=== PATIENT | male | born 1970 | race American Indian/Alaskan Native ===

== ENCOUNTER 2021-04-23 13:45 | Emergency (ER) | payer SELFPAY ==
[2021-04-23] MEDS ORDERED: MORPHINE 4 MG/1 ML INJ IV ONE (14:32)
[2021-04-23] MEDS ORDERED: ONDANSETRON 4 MG/2 ML INJ IV ONE (14:32)
--- NOTE | 2021-04-23 14:35 | Emergency Department Report ---
ED Abdominal Pain HPI - General Chief Complaint: Abdominal Pain Stated Complaint: STOMACH PAIN Time Seen by Provider: 04/23/21 14:25 Source: patient Mode of arrival: Ambulatory Limitations: No Limitations - History of Present Illness Initial Comments: Patient is 50 years old male with no significant past medical history. Patient presented to the ER complaining of epigastric pain for the last 2 to 3 days. Patient describes his pain as sharp with radiation to the back. Patient stated that pain associated with nausea but no vomiting. Patient denied any fever or chills. No chest pain or shortness of breath. Patient admitted that he has been drinking alcohol for the last few days. MD Complaint: abdominal pain -: days(s) (2) Location: epigastric Radiation: back Severity scale (0 -10): 0 - Related Data Home Medications Medication Instructions Recorded Confirmed Last Taken Gabapentin 400 mg PO TID 12/23/19 12/23/19 3 Days Ago ~12/20/19 risperiDONE [RisperDAL] 2 mg PO DAILY 12/23/19 12/23/19 3 Days Ago ~12/20/19 Previous Rx's Medication Instructions Recorded Last Taken Type Gabapentin 400 mg PO TID #60 capsule 12/25/19 Unknown Rx Dicyclomine [Bentyl] 20 mg PO TID PRN #30 tablet 04/23/21 Unknown Rx Ondansetron [Zofran Odt] 4 mg PO Q8HR PRN #20 tab.rapdis 04/23/21 Unknown Rx Allergies Allergy/AdvReac Type Severity Reaction Status Date / Time No Known Allergies Allergy Verified 04/23/21 13:57 ED Review of Systems ROS: Stated complaint: STOMACH PAIN Other details as noted in HPI Comment: All other systems reviewed and negative Constitutional: denies: chills, fever Respiratory: denies: cough, shortness of breath, SOB with exertion Cardiovascular: denies: chest pain, palpitations Gastrointestinal: abdominal pain, nausea. denies: vomiting, diarrhea, constipation, hematemesis, melena, hematochezia Musculoskeletal: denies: back pain Neurological: denies: headache, weakness, numbness, paresthesias, confusion ED Past Medical Hx - Past Medical History Previous Medical History?: Yes Hx Psychiatric Treatment: Yes (bipolar and alcohol abuse.) Additional medical history: etoh abuse - Surgical History Past Surgical History?: Yes Additional Surgical History: skin graft - Social History Smoking Status: Current Every Day Smoker Substance Use Type: Alcohol - Medications Home Medications: Home Medications Medication Instructions Recorded Confirmed Last Taken Type Gabapentin 400 mg PO TID 12/23/19 12/23/19 3 Days Ago History ~12/20/19 risperiDONE [RisperDAL] 2 mg PO DAILY 12/23/19 12/23/19 3 Days Ago History ~12/20/19 Gabapentin 400 mg PO TID #60 capsule 12/25/19 Unknown Rx Dicyclomine [Bentyl] 20 mg PO TID PRN #30 tablet 04/23/21 Unknown Rx Ondansetron [Zofran Odt] 4 mg PO Q8HR PRN #20 tab.rapdis 04/23/21 Unknown Rx ED Physical Exam - General Limitations: No Limitations General appearance: alert, in no apparent distress - Head Head exam: Present: atraumatic, normocephalic, normal inspection - Eye Eye exam: Present: normal appearance - ENT ENT exam: Present: normal exam, normal orophraynx, mucous membranes moist - Neck Neck exam: Present: normal inspection, full ROM. Absent: tenderness, meningismus - Respiratory Respiratory exam: Present: normal lung sounds bilaterally - Cardiovascular Cardiovascular Exam: Present: tachycardia, normal heart sounds - GI/Abdominal GI/Abdominal exam: Present: soft, normal bowel sounds. Absent: distended, tenderness, guarding, rebound, rigid, organomegaly, mass, bruit, pulsatile mass, hernia - Extremities Exam Extremities exam: Present: normal inspection, full ROM, normal capillary refill. Absent: tenderness, pedal edema, joint swelling, calf tenderness - Back Exam Back exam: Present: normal inspection, full ROM. Absent: CVA tenderness (R), CVA tenderness (L) - Neurological Exam Neurological exam: Present: alert, oriented X3, CN II-XII intact - Psychiatric Psychiatric exam: Present: normal mood. Absent: homicidal ideation, suicidal ideation - Skin Skin exam: Present: warm, intact, normal color ED Course Vital Signs 04/23/21 04/23/21 04/23/21 13:55 14:13 14:16 Temperature 98.9 F 98.9 F Pulse Rate 115 H 115 H Respiratory 21 21 18 Rate Blood Pressure 163/95 Blood Pressure 163/95 [Right] O2 Sat by Pulse 100 100 97 Oximetry 04/23/21 04/23/21 04/23/21 15:47 15:50 16:01 Temperature Pulse Rate 102 H 74 Respiratory 21 14 Rate Blood Pressure 162/117 Blood Pressure 162/117 [Right] O2 Sat by Pulse 99 97 100 Oximetry 04/23/21 04/23/21 04/23/21 16:15 16:31 16:45 Temperature Pulse Rate 93 H 103 H 87 Respiratory 12 17 12 Rate Blood Pressure 162/117 162/117 162/117 Blood Pressure [Right] O2 Sat by Pulse 100 100 99 Oximetry 04/23/21 04/23/21 04/23/21 17:00 17:23 17:31 Temperature Pulse Rate 82 Respiratory 11 L Rate Blood Pressure 158/111 Blood Pressure [Right] O2 Sat by Pulse 99 100 100 Oximetry 04/23/21 04/23/21 04/23/21 17:45 18:00 18:15 Temperature Pulse Rate Respiratory Rate Blood Pressure 146/99 146/99 Blood Pressure [Right] O2 Sat by Pulse 100 99 Oximetry 04/23/21 04/23/21 04/23/21 18:31 18:45 19:02 Temperature Pulse Rate 82 Respiratory 12 Rate Blood Pressure 146/99 146/99 Blood Pressure 146/99 [Right] O2 Sat by Pulse 99 100 99 Oximetry ED Medical Decision Making - Lab Data Result diagrams: 04/23/21 14:47 04/23/21 16:08 Critical care attestation.: If time is entered above; I have spent that time in minutes in the direct care of this critically ill patient, excluding procedure time. ED Disposition Clinical Impression: Abdominal pain Disposition: 01 HOME / SELF CARE / HOMELESS Is pt being admited?: No Condition: Stable Instructions: Abdominal Pain, Adult Additional Instructions: return if worse Prescriptions: Dicyclomine [Bentyl] 20 mg PO TID PRN #30 tablet PRN Reason: pain Ondansetron [Zofran Odt] 4 mg PO Q8HR PRN #20 tab.rapdis PRN Reason: Nausea Referrals: DAI MCGEE MD [Staff Physician] - 3-5 Days PRIMARY CARE, [Primary Care Provider] - 3-5 Days
[2021-04-23 15:05] LABS: Basophils % (Auto) 0.5 % (0.0-1.8); Eosinophils % (Auto) 0.4 % (0.0-4.3); Hematocrit 42.3 % (35.5-45.6); Hemoglobin 14.8 gm/dl (11.8-15.2); Lymphocytes # (Auto) 1.9 K/mm3 (1.2-5.4); Lymphocytes % (Auto) 34.3 % (13.4-35.0); Mean Corpuscular HGB Conc 35 % (32-34); Mean Corpuscular Volume 105 fl (84-94); Monocytes # (Auto) 0.6 K/mm3 (0.0-0.8); Monocytes % (Auto) 10.5 % (0.0-7.3); Platelet Count 148 K/mm3 (140-440); Red Blood Count 4.01 M/mm3 (3.65-5.03); Red Cell Distribution Width 15.5 % (13.2-15.2)
[2021-04-23 15:23] LABS: Albumin 4.5 g/dL (3.9-5); Bilirubin,Direct 0.6 mg/dL (0-0.2)
[2021-04-23] MEDS ORDERED: SODIUM CHLORIDE 0.9% 1000 ML 1,000 ML ONE (15:34)
[2021-04-23 15:35] LABS: Bilirubin,Urine SM (Negative); Blood,Urine MOD (Negative); Color,Urine Amber (Yellow); Mucus,Urine 3+ /HPF
[2021-04-23 15:40] LABS: Ictotest,Urine Negative (Negative)
[2021-04-23 16:22] LABS: Blood Urea Nitrogen 2 mg/dL (9-20); Calcium 9.9 mg/dL (8.4-10.2); Hemolysis Index 14
[2021-04-23 16:26] LABS: BUN/Creatinine Ratio 3
--- NOTE | 2021-04-23 17:53 | Cat Scan Report ---
CT OF THE ABDOMEN AND PELVIS WITH INTRAVENOUS CONTRAST INDICATION / CLINICAL INFORMATION: Abdominal pain. TECHNIQUE: The patient received 100 cc Omnipaque [address] scans at this location are performed using CT dose reduction for ALARA by means of automated exposure control. COMPARISON: None available. FINDINGS: ABDOMEN: The liver measures 16.6 cm in length and demonstrates mild diffuse decreased density without focal lesion. The gallbladder, bile ducts, pancreas, spleen, adrenal glands and kidneys demonstrate no significant abnormality. There are moderate atherosclerotic calcifications involving the distal ab dominal aorta without aneurysm. The lung bases are clear. There is mild increased fluid throughout the bowel, most prominent in the distal small bowel and righ t colon. I see no evidence of bowel obstruction, wall thickening or free air. No adenopathy is presen t. PELVIS: The distal ureters, urinary bladder, prostate gland and seminal vesicles are unremarkable. A normal appendix is present. There is no evidence of diverticulitis. No abnormal mass or fluid collect ion is seen. I do not identify a hernia. No acute osseous abnormality is seen. IMPRESSION: 1. Mild increased fluid throughout the bowel, especially the distal small bowel and right colon is no nspecific. A low-grade gastroenteritis/enterocolitis should be considered. 2. Borderline hepatomegaly with mild diffuse fatty infiltration. Signer Name: Suleman Moon MD Signed: 04/23/2021 5:48 PM Workstation Name: [id number]
[2021-04-23 19:03] VITALS: BP 146/99
== END 2021-04-23 19:10 | disposition home or self-care (01) ==
LOC: ED 13:45
DX: R10.13 Epigastric pain (principal); F17.200 Nicotine dependence, unspecified, uncomplicated; F31.9 Bipolar disorder, unspecified; Z72.89 Other problems related to lifestyle; Z79.899 Other long term (current) drug therapy
CPT/HCPCS: 36415; 74177; 80048; 80076; 81001; 82150; 83690; 85025; 96374; 96375; 99284; J2270; J2405; J7030; Q9967

== ENCOUNTER 2021-11-19 15:09 | Emergency (ER) | payer SELFPAY ==
--- NOTE | 2021-11-19 16:30 | XRay Report ---
CHEST 1 VIEW INDICATION / CLINICAL INFORMATION: AMS. COMPARISON: None available. FINDINGS: SUPPORT DEVICES: None. HEART / MEDIASTINUM: No significant abnormality. LUNGS / PLEURA: No significant pulmonary abnormality. BONES: No significant osseous abnormality. ADDITIONAL FINDINGS: No significant additional findings. IMPRESSION: 1. No active cardiopulmonary disease. Signer Name: Pasquale Smith II, MD Signed: 11/19/2021 4:26 PM Workstation Name: [id number]
[2021-11-19 16:39] LABS: Alanine Aminotransferase 37 units/L (7-56); Albumin 3.9 g/dL (3.9-5); BUN/Creatinine Ratio 11; Blood Urea Nitrogen 8 mg/dL (9-20); Hemolysis Index 32
[2021-11-19 17:19] LABS: Hematocrit 37.1 % (35.5-45.6); Hemoglobin 12.5 gm/dl (11.8-15.2); Mean Corpuscular HGB Conc 34 % (32-34); Mean Corpuscular Volume 100 fl (84-94); Platelet Count 252 K/mm3 (140-440); Red Blood Count 3.72 M/mm3 (3.65-5.03); Red Cell Distribution Width 19.1 % (13.2-15.2)
--- NOTE | 2021-11-19 17:25 | Cat Scan Report ---
CT head/brain wo con INDICATION: AMS. TECHNIQUE: Routine CT head. All CT scans at this location are performed using CT dose reduction for A JAIME by means of automated exposure control. COMPARISON: None. FINDINGS: Intracranial: Rosado-white matter differentiation is maintained. No intracranial hemorrhage. No extra a xial collection. No hydrocephalus. No herniation. Sinuses: Mucosal retention cysts in the right ethmoid air cells. Minimal mucosal thickening in the pa ranasal sinuses. Mastoid air cells are essentially clear. Orbits: Globes are intact. Calvarium: No acute fracture. IMPRESSION: 1. No acute intracranial abnormality. Signer Name: Kennedy Forrest MD Signed: 11/19/2021 5:21 PM Workstation Name: [id number]
[2021-11-19] MEDS ORDERED: SODIUM CHLORIDE 0.9% 1000 ML 1,000 ML IV ONE (18:47)
[2021-11-19 18:58] LABS: Anisocytosis RARE; Basophils % (Manual) 0 % (0.0-1.8); Eosinophils % (Manual) 0 % (0.0-4.3); Hypochromasia Rare; Total Cells Counted 100
--- NOTE | 2021-11-19 22:21 | Emergency Department Report ---
ED General Adult HPI - General Chief complaint: Alcohol Stated complaint: ALCOHOL INTOXICATION Time Seen by Provider: 11/19/21 15:33 Source: EMS Mode of arrival: Stretcher Limitations: Altered Mental Status - History of Present Illness Initial comments: patient presents 2/ being found confused and agitated @ a [employer]. Patient had to be restrained by EMS and given versed. Patient is somnolent @ this time and unable to give any hx. - Related Data Home Medications Medication Instructions Recorded Confirmed Last Taken Gabapentin 400 mg PO TID 12/23/19 12/23/19 3 Days Ago ~12/20/19 risperiDONE [RisperDAL] 2 mg PO DAILY 12/23/19 12/23/19 3 Days Ago ~12/20/19 Previous Rx's Medication Instructions Recorded Last Taken Type Gabapentin 400 mg PO TID #60 capsule 12/25/19 Unknown Rx Dicyclomine [Bentyl] 20 mg PO TID PRN #30 tablet 04/23/21 Unknown Rx Ondansetron [Zofran Odt] 4 mg PO Q8HR PRN #20 tab.rapdis 04/23/21 Unknown Rx Allergies Allergy/AdvReac Type Severity Reaction Status Date / Time No Known Allergies Allergy Verified 11/19/21 15:18 ED Review of Systems ROS: Stated complaint: ALCOHOL INTOXICATION Other details as noted in HPI Comment: Unobtainable due to pts medical conditions ED Past Medical Hx - Past Medical History Hx Psychiatric Treatment: Yes (bipolar and alcohol abuse.) Additional medical history: etoh abuse - Surgical History Additional Surgical History: skin graft - Social History Smoking Status: Never Smoker - Medications Home Medications: Home Medications Medication Instructions Recorded Confirmed Last Taken Type Gabapentin 400 mg PO TID 12/23/19 12/23/19 3 Days Ago History ~12/20/19 risperiDONE [RisperDAL] 2 mg PO DAILY 12/23/19 12/23/19 3 Days Ago History ~12/20/19 Gabapentin 400 mg PO TID #60 capsule 12/25/19 Unknown Rx Dicyclomine [Bentyl] 20 mg PO TID PRN #30 tablet 04/23/21 Unknown Rx Ondansetron [Zofran Odt] 4 mg PO Q8HR PRN #20 tab.rapdis 04/23/21 Unknown Rx ED Physical Exam - General Limitations: Altered Mental Status General appearance: in no apparent distress, other (somnolent) - Head Head exam: Present: atraumatic, normocephalic - Eye Eye exam: Present: PERRL, EOMI - ENT ENT exam: Present: mucous membranes moist, other (airway patent) - Neck Neck exam: Present: other (supple; no JVD) - Respiratory Respiratory exam: Present: other (good air entry, nml I:E, CTAB, no use of VICTORIANO) - Cardiovascular Cardiovascular Exam: Present: regular rate. Absent: rubs, gallop - GI/Abdominal GI/Abdominal exam: Present: soft, normal bowel sounds. Absent: distended - Extremities Exam Extremities exam: Present: full ROM. Absent: tenderness - Back Exam Back exam: Present: full ROM, other (no step offs). Absent: tenderness - Neurological Exam Neurological exam: Present: other (GCS 11/15 ([id number]); no gross CN palsies; moving all extremities equally) - Skin Skin exam: Present: warm, normal color ED Course Vital Signs 11/19/21 11/19/21 11/19/21 15:15 16:18 16:30 Temperature Pulse Rate 106 H 99 H Respiratory Rate Blood Pressure 112/71 102/69 [Left] O2 Sat by Pulse 100 99 99 Oximetry 11/19/21 11/19/21 11/19/21 17:30 20:49 20:55 Temperature 97.6 F Pulse Rate 93 H 77 79 Respiratory 11 L 12 Rate Blood Pressure 102/67 142/100 [Left] O2 Sat by Pulse 99 96 96 Oximetry ED Medical Decision Making - Lab Data Result diagrams: 11/19/21 17:03 11/19/21 16:11 Laboratory Tests 11/19/21 11/19/21 11/19/21 16:11 16:11 17:03 WBC 4.2 L RBC 3.72 Hgb 12.5 Hct 37.1 MCV 100 H MCH 34 H MCHC 34 RDW 19.1 H Plt Count 252 Lymph % (Auto) Refractory Worker Add Manual Diff Complete Total Counted 100 Seg Neutrophils % Refractory Worker Seg Neuts % (Manual) 29.0 L Band Neutrophils % 0 Lymphocytes % (Manual) 55.0 H Reactive Lymphs % (Man) 0 Monocytes % (Manual) 16.0 H Eosinophils % (Manual) 0 Basophils % (Manual) 0 Metamyelocytes % 0 Myelocytes % 0 Promyelocytes % 0 Blast Cells % 0 Nucleated RBC % Not Reportable Seg Neutrophils # Man 1.2 L Band Neutrophils # 0.0 Lymphocytes # (Manual) 2.3 Abs React Lymphs (Man) 0.0 Monocytes # (Manual) 0.7 Eosinophils # (Manual) 0.0 Basophils # (Manual) 0.0 Metamyelocytes # 0.0 Myelocytes # 0.0 Promyelocytes # 0.0 Blast Cells # 0.0 WBC Morphology Not Reportable Hypersegmented Neuts Not Reportable Hyposegmented Neuts Not Reportable Hypogranular Neuts Not Reportable Smudge Cells Not Reportable Toxic Granulation Not Reportable Toxic Vacuolation Not Reportable Dohle Bodies Not Reportable Pelger-Huet Anomaly Not Reportable Rehana Rods Not Reportable Platelet Estimate Not Reportable Clumped Platelets Not Reportable Plt Clumps, EDTA Not Reportable Large Platelets Not Reportable Giant Platelets Not Reportable Platelet Satelliting Not Reportable Plt Morphology Comment Not Reportable RBC Morphology Not Reportable Dimorphic RBCs Not Reportable Polychromasia Not Reportable Hypochromasia Rare Poikilocytosis Not Reportable Anisocytosis Rare Microcytosis Not Reportable Macrocytosis Not Reportable Spherocytes Not Reportable Pappenheimer Bodies Not Reportable Sickle Cells Not Reportable Target Cells Not Reportable Tear Drop Cells Not Reportable Ovalocytes Not Reportable Helmet Cells Not Reportable Jean Baptiste-Esko Bodies Not Reportable [place] Rings Not Reportable [place]more Cells Not Reportable Bite Cells Not Reportable Crenated Cell Not Reportable Elliptocytes Not Reportable Acanthocytes (Spur) Not Reportable Rouleaux Not Reportable Hemoglobin C Crystals Not Reportable Schistocytes Not Reportable Malaria parasites Not Reportable Estrada Bodies Not Reportable Hem Pathologist Commnt No Sodium 143 Potassium 3.8 Chloride 106.4 Carbon Dioxide 25 Anion Gap 15 BUN 8 L Creatinine 0.7 L Estimated GFR > 60 BUN/Creatinine Ratio 11 Glucose 79 Calcium 8.0 L Total Bilirubin 0.40 AST 98 H ALT 37 Alkaline Phosphatase 104 Troponin T < 0.010 Total Protein 6.0 L Albumin 3.9 Albumin/Globulin Ratio 1.9 Urine Color Urine Turbidity Urine pH Ur Specific [place] Urine Protein Urine Glucose (UA) Urine Ketones Urine Blood Urine Nitrite Urine Bilirubin Urine Urobilinogen Ur Leukocyte Esterase Urine WBC (Auto) Urine RBC (Auto) U Epithel Cells (Auto) Urine Mucus Urine Opiates Screen Urine Methadone Screen Ur Barbiturates Screen Ur Phencyclidine Scrn Ur Amphetamines Screen U Benzodiazepines Scrn Urine Cocaine Screen U Marijuana (THC) Screen Drugs of Abuse Note Plasma/Serum Alcohol 0.47 H 11/19/21 11/19/21 11/19/21 21:20 22:26 22:26 WBC RBC Hgb Hct MCV MCH MCHC RDW Plt Count Lymph % (Auto) Add Manual Diff Total Counted Seg Neutrophils % Seg Neuts % (Manual) Band Neutrophils % Lymphocytes % (Manual) Reactive Lymphs % (Man) Monocytes % (Manual) Eosinophils % (Manual) Basophils % (Manual) Metamyelocytes % Myelocytes % Promyelocytes % Blast Cells % Nucleated RBC % Seg Neutrophils # Man Band Neutrophils # Lymphocytes # (Manual) Abs React Lymphs (Man) Monocytes # (Manual) Eosinophils # (Manual) Basophils # (Manual) Metamyelocytes # Myelocytes # Promyelocytes # Blast Cells # WBC Morphology Hypersegmented Neuts Hyposegmented Neuts Hypogranular Neuts Smudge Cells Toxic Granulation Toxic Vacuolation Dohle Bodies Pelger-Huet Anomaly Rehana Rods Platelet Estimate Clumped Platelets Plt Clumps, EDTA Large Platelets Giant Platelets Platelet Satelliting Plt Morphology Comment RBC Morphology Dimorphic RBCs Polychromasia Hypochromasia Poikilocytosis Anisocytosis Microcytosis Macrocytosis Spherocytes Pappenheimer Bodies Sickle Cells Target Cells Tear Drop Cells Ovalocytes Helmet Cells Jean Baptiste-Esko Bodies [place] Rings Needmore Cells Bite Cells Crenated Cell Elliptocytes Acanthocytes (Spur) Rouleaux Hemoglobin C Crystals Schistocytes Malaria parasites Estrada Bodies Hem Pathologist Commnt Sodium Potassium Chloride Carbon Dioxide Anion Gap BUN Creatinine Estimated GFR BUN/Creatinine Ratio Glucose Calcium Total Bilirubin AST ALT Alkaline Phosphatase Troponin T Total Protein Albumin Albumin/Globulin Ratio Urine Color Colorless Urine Turbidity Clear Urine pH 5.0 Ur Specific [place] 1.005 Urine Protein <15 mg/dl Urine Glucose (UA) Neg Urine Ketones Neg Urine Blood Neg Urine Nitrite Neg Urine Bilirubin Neg Urine Urobilinogen < 2.0 Ur Leukocyte Esterase Neg Urine WBC (Auto) < 1.0 Urine RBC (Auto) < 1.0 U Epithel Cells (Auto) < 1.0 Urine Mucus Few Urine Opiates Screen Presumptive negative Urine Methadone Screen Presumptive negative Ur Barbiturates Screen Presumptive negative Ur Phencyclidine Scrn Presumptive negative Ur Amphetamines Screen Presumptive negative U Benzodiazepines Scrn Presumptive positive Urine Cocaine Screen Presumptive negative U Marijuana (THC) Screen Presumptive negative Drugs of Abuse Note Disclamer Plasma/Serum Alcohol 0.40 H EKG: HR 60, SR, nml intervals, no significant ST changes in contiguous leads CXR: no acute cardiopulmonary process CT head: no acute intracranial process - Medical Decision Making @ 10:50 pm-> Patient with GCS 15/15; able to ambulate without assistance. Denies suicidal and homicidal ideations, intent, plan. Patient is ready to go home. His relative will come pick him up. Critical care attestation.: If time is entered above; I have spent that time in minutes in the direct care of this critically ill patient, excluding procedure time. ED Disposition Clinical Impression: Alcohol intoxication Disposition: 01 HOME / SELF CARE / HOMELESS Is pt being admited?: No Does the pt Need Aspirin: No Condition: Stable Instructions: Binge-Drinking Information, Adult Additional Instructions: Follow up with your regular doctor within 2 - 4 days. Return to the ER if your symptoms worsen. Time of Disposition: 22:50
[2021-11-19 22:36] LABS: Bilirubin,Urine NEG (Negative); Blood,Urine NEG (Negative); Color,Urine Colorless (Yellow); Mucus,Urine FEW /HPF; Protein,Urine <15 mg/dL mg/dL (Negative); RBC,Urine < 1.0 /HPF (0.0-6.0); Urobilinogen,Urine < 2.0 mg/dL (<2.0); WBC,Urine < 1.0 /HPF (0.0-6.0)
[2021-11-19 22:45] LABS: Amphetamine Screen,Urine PRESUMPTIVE NEGATIVE; Benzodiazepines Screen,Urine PRESUMPTIVE POSITIVE; Cannabinoid Screen,Urine PRESUMPTIVE NEGATIVE; Cocaine Screen,Urine PRESUMPTIVE NEGATIVE; Methadone Screen,Urine PRESUMPTIVE NEGATIVE; Opiate Screen,Urine PRESUMPTIVE NEGATIVE
[2021-11-19 22:56] VITALS: BP 113/79
--- NOTE | 2021-11-25 18:13 | Electrocardiograph Report ---
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
== END 2021-11-19 23:11 | disposition home or self-care (01) ==
LOC: ED 15:09
DX: F10.129 Alcohol abuse with intoxication, unspecified (principal); F31.9 Bipolar disorder, unspecified; R51.9 Headache, unspecified; Z79.899 Other long term (current) drug therapy; Y90.9 Presence of alcohol in blood, level not specified
CPT/HCPCS: 36415; 70450; 71045; 80053; 80307; 81001; 84484; 85007; 85025; 93005; 96360; 99285; J7030; 80320; G0480